=== PATIENT | female | born 1965 | race Caucasian/White ===

== ENCOUNTER → 2019-11-03 | Day surgery (SDC) | payer OTHER ==
[~2019-11-03] MED LIST: BACLOFEN10 MG PO; COLESTIPOL HCL1 GM PO; CYCLOBENZAPRINE10 MG PO; DICYCLOMINE HCL20 MG PO; GLUCAGON FOR INJ 1 MG VIAL ONE; HYOSCYAMINE 0.125 MG TAB ONE; LIDOCAINE HCL 2% LOCAL INJ 5 ML SDV VIAL INJ ONE; MIDAZOLAM HCL 2 MG/2 ML VIAL ONE; OMEPRAZOLE40 MG PO; ONE A DAY PO; PREDNISONE10 M2; PROPOFOL IV EMULSION 10 MG/ML 20 ML VIAL ONE; PROPOFOL IV EMULSION 10 MG/ML 50 ML VIAL ONE; SIMETHICONE 40 MG/0.6 ML BTL ONE; VISBIOME 112.51 EACH PO; Z.0.APRISO0.375 GM; Z.0.BENTYL20 MG; Z.0.OMEPRAZOLE40 MG; [UNRECOGNIZED DRUG - OTHER]; [UNRECOGNIZED DRUG - OTHER]
--- NOTE | 2019-11-03 07:40 | NUR ---
SPIRITUAL CARE - Pre-Surgery Assessment: Pt in bed. Pt's family at bedside. Pt reported supportive attention from family and friends. Intervention: I provided pastoral presence, hospitality, and sympathetic listening. I acquainted pt with availability of calibration laboratory technician while hospitalized. Outcome: Pt expressed appreciation for visit. No need for follow up indicated at this time. DAFNE [facility] Spiritual Care Department O: [phone]
[2019-11-03 09:35] VITALS: BP 128/82
[2019-11-03 09:53] LABS: WBC,FECAL (FECAL LACTOFERRIN) NEGATIVE (NEGATIVE)
--- NOTE | 2019-11-03 12:58 | Operative Report ---
DATE OF PROCEDURE: 11/03/2019 SURGEON: Carlin Hobson MD PROCEDURE: Colonoscopy with polypectomy and biopsies. INDICATIONS FOR COLONOSCOPY: Left-sided abdominal pain, diarrhea, suboptimal prep on recent colonoscopy. MEDICATIONS: The patient was done under MAC, please see anesthesiologist's note. PROCEDURE IN DETAIL: With the patient in the lateral decubitus position, a flexible fiberoptic Olympus colonoscope was inserted into the rectum with ease and advanced all the way to the cecum. Mucosa overlying the cecum grossly appeared to be within normal limits. The ileocecal valve was intubated and the scope was advanced into the terminal ileum. Biopsies were obtained. The scope was then withdrawn back into the colon. It was then withdrawn slowly, mucosa overlying the ascending, transverse, descending, and rectum revealed some diffuse mild inflammatory changes and multiple random biopsies were obtained. Two polyps were removed per hot snare polypectomy from the sigmoid colon. There was some minimal diverticulosis in the sigmoid colon. Some minimal diverticulosis was also noted in the sigmoid colon. The scope was then retroflexed into the distal rectum and small internal hemorrhoids were noted, none of which was actively bleeding. The scope was then straightened out and it was subsequently withdrawn after securing an adequate stool specimen that was sent for the appropriate stool studies. The patient tolerated the procedure well. IMPRESSION: 1. Mild patchy diffuse colitis. 2. Sigmoid colon polyps x2, hot snared. 3. Diverticulosis. 4. Proctitis, mild. 5. Internal hemorrhoids, none actively bleeding. PLAN: Follow up histology. Follow up stool studies. Continue Bentyl 20 mg 1 p.o. q.i.d. Increase Visbiome to 1 p.o. b.i.d. The patient might benefit from a followup colonoscopy in 3 to 5 years. MD CHRISTIANE Jose/MARVA /[id number] cc: Maksim Mckeon DO
[2019-11-03 14:41] LABS: C DIFFICILE TOXIN A&B AMP PROB NEGATIVE (NEGATIVE)
== END | disposition home or self-care (01) ==
LOC: OR 05:59
PROVIDERS: ATTEND Internal Medicine Gastroenterology
DX: K50.90 Crohn's disease, unspecified, without complications (principal); E11.9 Type 2 diabetes mellitus without complications; M19.90 Unspecified osteoarthritis, unspecified site; M54.9 Dorsalgia, unspecified; K52.9 Noninfective gastroenteritis and colitis, unspecified; K63.5 Polyp of colon; K57.30 Diverticulosis of large intestine without perforation or abscess without bleeding; K62.89 Other specified diseases of anus and rectum; K64.8 Other hemorrhoids
CPT/HCPCS: 36415; 45378; 45380; 45384; 45385; 82948; 83630; 83993; 87045; 87177; 87328; 87493; J1610; J2001; J2250

== ENCOUNTER 2021-04-20 16:03 | Emergency (ER) | payer MEDICARE, OTHER ==
[~2021-04-20] VITALS: Ht 175.3 cm; Wt 97.5 kg
[~2021-04-20 16:03] MED LIST changes: -GLUCAGON FOR INJ 1 MG VIAL ONE; -HYOSCYAMINE 0.125 MG TAB ONE; -LIDOCAINE HCL 2% LOCAL INJ 5 ML SDV VIAL INJ ONE; -MIDAZOLAM HCL 2 MG/2 ML VIAL ONE; -PROPOFOL IV EMULSION 10 MG/ML 20 ML VIAL ONE; -PROPOFOL IV EMULSION 10 MG/ML 50 ML VIAL ONE; -SIMETHICONE 40 MG/0.6 ML BTL ONE
== END 2021-04-20 19:10 | disposition left against medical advice (07) ==
LOC: ER 18:47
DX: M54.5 Low back pain (principal)
CPT/HCPCS: 72110